=== PATIENT | male | born 1945 | race Caucasian/White ===

== ENCOUNTER → 2017-12-09 | Outpatient (CLI) | payer MEDICARE, OTHER | LOC: M RAD 10:06 | DX: I72.4 Aneurysm of artery of lower extremity (principal); I70.293 Other atherosclerosis of native arteries of extremities, bilateral legs | CPT/HCPCS: 93923 ==

== ENCOUNTER → 2018-02-17 | Outpatient (CLI) | payer MEDICARE, OTHER | LOC: M RAD 09:18 | DX: I65.23 Occlusion and stenosis of bilateral carotid arteries (principal) | CPT/HCPCS: 93880 ==

== ENCOUNTER → 2022-07-26 | Outpatient (CLI) | payer MEDICARE, OTHER ==
[~2022-07-26] MED LIST: ATOR40TA75 PO; B-12100021 PO; BISO5TAB14 PO; ECOT81TA5 PO; XARE20TA PO
== END ==
LOC: M LABSMTC 11:41
PROVIDERS: ATTEND Anesthesiology
DX: Z01.812 Encounter for preprocedural laboratory examination (principal); Z11.52 Encounter for screening for COVID-19

== ENCOUNTER 2022-07-31 10:20 | Day surgery (SDC) | payer MEDICARE, OTHER ==
[~2022-07-31] VITALS: Ht 177.8 cm; Wt 75.7 kg
[~2022-07-31 10:20] MED LIST changes: +NS 1,000 ML IV ONE
[2022-07-31] MEDS ORDERED: propofoL 200 MG/20 ML VIAL As Ordered ONE (12:01)
[2022-07-31] MEDS ORDERED: fentaNYL 100 MCG/2 ML INJECTION As Ordered ONE (12:02)
[2022-07-31] MEDS ORDERED: SIMETHICONE 40MG/0.6ML DROPS 30ML As Ordered ONE (13:01)
[2022-07-31 13:45] VITALS: BP 148/91
== END 2022-07-31 14:22 | disposition home or self-care (01) ==
LOC: M OPP 10:20
PROVIDERS: ATTEND Internal Medicine Gastroenterology
DX: D12.6 Benign neoplasm of colon, unspecified (principal); D50.9 Iron deficiency anemia, unspecified; K57.30 Diverticulosis of large intestine without perforation or abscess without bleeding; K64.4 Residual hemorrhoidal skin tags; K64.8 Other hemorrhoids; K55.21 Angiodysplasia of colon with hemorrhage; K31.89 Other diseases of stomach and duodenum; K31.A19 Gastric intestinal metaplasia without dysplasia, unspecified site; Z79.01 Long term (current) use of anticoagulants; Z79.02 Long term (current) use of antithrombotics/antiplatelets; Z79.82 Long term (current) use of aspirin; Z79.899 Other long term (current) drug therapy; I48.91 Unspecified atrial fibrillation; I10 Essential (primary) hypertension; E78.00 Pure hypercholesterolemia, unspecified; I65.29 Occlusion and stenosis of unspecified carotid artery; Z87.891 Personal history of nicotine dependence; Z80.3 Family history of malignant neoplasm of breast
CPT/HCPCS: 43239; 45382; 45385; 88305; J3010